=== PATIENT | male | born 1950 | race Caucasian/White ===

== ENCOUNTER 2016-04-10 09:43 | Day surgery (SDC) | payer BC ==
[2016-04-06 10:26] VITALS: BMI 29.0
[2016-04-10 10:03] VITALS: TEMP 98.4
[2016-04-10] MEDS ORDERED: PROPOFOL 20 ML ONE ×2 (11:00)
[2016-04-10 11:55] VITALS: BP 118/71; PULSE 67
== END 2016-04-10 12:00 | disposition home or self-care (01) ==
LOC: FASU 09:43
PROVIDERS: ATTEND Internal Medicine Gastroenterology
PROC: 0DJD8ZZ Inspection of Lower Intestinal Tract, Via Natural or Artificial Opening Endoscopic (ICD-10-PCS; principal; 2016-04-10 11:07)
DX: Z86.010 Personal history of colon polyps (principal); K57.30 Diverticulosis of large intestine without perforation or abscess without bleeding

== ENCOUNTER 2022-11-06 10:25 | Day surgery (SDC) | payer OTHER, BC ==
[2022-11-02 11:14] VITALS: BMI 27.1
[2022-11-06 10:53] VITALS: RESP 18
[2022-11-06 12:03] VITALS: TEMP 97
[2022-11-06 12:13] VITALS: BP 117/50; PULSE 85
== END 2022-11-06 12:22 | disposition home or self-care (01) ==
LOC: FASU-ENDO 10:25
PROVIDERS: ATTEND Internal Medicine Gastroenterology
PROC: 0DJD8ZZ Inspection of Lower Intestinal Tract, Via Natural or Artificial Opening Endoscopic (ICD-10-PCS; principal; 2022-11-06 11:38)
DX: Z12.11 Encounter for screening for malignant neoplasm of colon (principal); K57.30 Diverticulosis of large intestine without perforation or abscess without bleeding; Z86.010 Personal history of colon polyps